=== PATIENT | male | born 1990 | race African-American/Black ===

== ENCOUNTER 2016-07-05 06:30 | Emergency (ER) ==
[2016-07-05] MEDS ORDERED: NS 1,000 ML ONE (07:31)
[2016-07-05] MEDS ORDERED: ZOFRAN ONE (07:31)
[2016-07-05] MEDS ORDERED: IMODIUM ONE (08:21)
--- NOTE | 2016-07-05 09:41 | PROVIDER DOCUMENTATION ---
HPI-Abdominal Pain/GI Problem - General Stated Complaint: N/V/D Time Seen by Provider: 07/05/16 09:37 Source: patient Allergies/Adverse Reactions: Patient Allergies Allergy/AdvReac Type Severity Reaction Status Date / Time No Known Allergies Allergy Verified 08/19/14 08:16 Home Medications: Home Medication List Medication Instructions Recorded Confirmed Last Taken Type Promethazine [Phenergan] 25 mg PO Q6H PRN PRN #30 tablet 08/19/14 Unknown Rx Loperamide [Imodium] 2 mg PO PRN PRN #20 capsule 07/05/16 Unknown Rx Ondansetron [Zofran Odt] 4 mg PO 4XDAY PRN PRN #20 07/05/16 Unknown Rx tab.rapdis - History of Present Illness-ABD Nature of Presenting Problems: 3 days of N/V/D but worked 2 days but can't handle it today and wnats some IV fluids Review of Systems - Adult - REVIEW OF SYSTEMS - ADULT Constitutional: denies: chills, fever Eyes: denies: discharge, blurred vision Ears, Nose, Mouth & Throat: denies: ear pain, nose pain, hoarseness Cardiovascular: denies: chest pain, irregular heart rate, poor circulation Respiratory: denies: chronic cough, pleurisy Gastrointestinal: reports: diarrhea, nausea, vomiting Genitourinary: denies: discharge, frequent UTI's Musculoskeletal: denies: bone pain, joint pain, muscle weakness Integumentary: denies: itching, mole changes Neurological: denies: dizziness/vertigo, paresthesia, syncope Psychiatric: reports: no symptoms reported Endocrine: denies: goiter, cold intolerance, heat intolerance Hematologic/Lymphatic: denies: low blood count, lymphedema Allergic/Immunologic: denies: eczema, frequent infections, hives Past History - Adult - PAST MEDICAL HISTORY-ADULT Review of Records: reports: Nursing Assessment Review, Medications Reviewed Major Childhood Illnesses: reports: denies history - PRIOR SURGERIES/PROCEDURES Surgical/Procedure History: reports: none - IMMUNIZATION STATUS Childhood Immunizations: See Nurse Assessment Flu Vaccine: See Nurse Assessment Physical Exam-General - PHYSICAL EXAM-ADULT Initial Vital Signs Reviewed: Yes - CONSTITUTIONAL General Appearance: appears well, alert, no apparent distress - EYES Eyes: PERRL/EOMI, pink conjunctivae - HEAD, EARS, NOSE, MOUTH & THROAT HENMT: normocephalic/atraumatic, moist mucous membranes, normal ENT inspection - NECK Neck: non-tender, full range of motion, supple, normal inspection - RESPIRATORY Respiratory: chest non-tender, lungs clear, normal breath sounds, no pleuratic chest pain, no respiratory distress, no accessory muscle use - CARDIOVASCULAR Cardiovascular: normal peripheral pulses, regular rate, rhythm, no edema, no gallop, no JVD, no murmur - CHEST (BREASTS) Chest/Breast: deferred, normal breast inspection, no masses/lumps - GASTROINTESTINAL (ABDOMEN) Abdominal Exam: normal bowel sounds, non tender, soft - LYMPHATIC Lymphatic: no adenopathy - MUSCULOSKELETAL Back Exam: normal inspection, no CVA tenderness, no vertebral tenderness Extremity: normal range of motion, non-tender, normal gait, normal inspection, no pedal edema, no calf tenderness - SKIN Integumentary: normal color, normal turgor, warm/dry - NEUROLOGIC 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, grossly normal, no motor/sensory deficits , abnormal cerebellar tests - PSYCHIATRIC Psych/Mental Status: normal mood/affect, normal thought content Progress - PLAN OF CARE/RESULTS Progress/Plan/Lab Results: Orders Category Date Time Status COMPREHENSIVE METABOLIC PANEL [CHEM] Stat Lab 07/05/16 07:40 Received 0.9% Sodium Chloride Inj [Ns] 1,000 ml Med 07/05/16 07:31 Discontinued .ROUTE As Directed Loperamide [Imodium] Med 07/05/16 08:21 Discontinued 4 mg .ROUTE .STK-MED ONE Ondansetron [Zofran] Med 07/05/16 07:31 Discontinued 4 mg .ROUTE .STK-MED ONE No Known Allergies Allergy (Verified 08/19/14 08:16) Promethazine [Phenergan] 25 mg PO Q6H PRN PRN #30 tablet 08/19/14 Loperamide [Imodium] 2 mg PO PRN PRN #20 capsule 07/05/16 Ondansetron [Zofran Odt] 4 mg PO 4XDAY PRN PRN #20 tab.rapdis 07/05/16 Departure - Departure Time of Disposition Order: 09:38 DIAGNOSIS: Gastroenteritis Disposition: HOME 01 Certified Medical Emergency: Emergent Condition: Stable Additional Instructions: ED Follow Up Instructions: You have been treated by a care provider in the Emergency Department. These instructions are being provided to you so you can have an understanding of how to care for yourself upon discharge. Upon discharge from the Emergency Department, you are responsible for making arrangements for follow-up care by a physician of your choice. Take all prescribed medications as directed. Return to the Emergency Department immediately for any new or worsening symptoms. You may call the Physician Referral phone number at [phone] to obtain a list of Physicians who are taking new patients. Prescriptions: Loperamide [Imodium] 2 mg PO PRN PRN #20 capsule PRN Reason: Diarrhea Ondansetron [Zofran Odt] 4 mg PO 4XDAY PRN PRN #20 tab.rapdis PRN Reason: Vomiting Referrals: None,PCP [Primary Care Provider] - Miryam Villarreal MD [STAFF PHYSICIAN] - Forms: Return to School/Parent Work Instructions: Loperamide tablets or capsules, Ondansetron tablets, Viral Gastroenteritis, [id number]
[2016-07-05 10:44] LABS: AGAP 10; BUN 11 mg/dL (8-22); CALCIUM 8.9 mg/dL (8.8-10.2); CHLORIDE 103 mmol/L (98-107); COSMO 275; POTASSIUM 3.8 mmol/L (3.5-5.1); SODIUM 138 mmol/L (136-145); TCO2 25 mmol/L (25-35)
[2016-07-05 10:45] LABS: ALBUMIN 4.5 g/dL (3.5-5.0); ALKALINE PHOSPHATASE 70 U/L (32-122); GOT 23 U/L (10-34); GPT 16 U/L (10-44); TOTAL PROTEIN 7.3 g/dL (6.3-8.3)
== END 2016-07-05 09:55 | disposition home or self-care (01) ==
LOC: P.ED 06:30
DX: K52.9 Noninfective gastroenteritis and colitis, unspecified (principal); R11.2 Nausea with vomiting, unspecified; R19.7 Diarrhea, unspecified
CPT/HCPCS: 36415; 80053; J2405; J7030